=== PATIENT | female | born 1990 | race Two or more races ===

== ENCOUNTER 2018-06-20 20:07 | Emergency (ER) | payer MEDICAID ==
[~2018-06-20] VITALS: Ht 162.6 cm; Wt 72.7 kg
[2018-06-20 20:36] VITALS: BP 135/78
[2018-06-20] MEDS ORDERED: LORazepam 1 MG tablet PO ONE (20:45)
[2018-06-20 21:02] LABS: URINE HCG NEGATIVE (NEG)
[2018-06-20 21:03] LABS: BASOPHILS % (AUTO) 0.3 % (0-1); EOSINOPHILS # (AUTO) 0.3 X10'3 (0-0.9); EOSINOPHILS % (AUTO) 2.4 % (0-6); HEMATOCRIT 43.6 % (35.0-45.0); LYMPHOCYTES # (AUTO) 2.2 X10'3 (1.1-4.8); LYMPHOCYTES % (AUTO) 18.4 % (21-51); MEAN CORPUSCULAR HEMOGLOBIN 30.3 PG (27.0-31.0); MEAN CORPUSCULAR HGB CONC 34.5 % (33.0-36.5); MEAN CORPUSCULAR VOLUME 87.9 FL (78-98); MEAN PLATELET VOLUME 8.6 FL (7.4-10.4); MONOCYTES # (AUTO) 0.6 X10'3 (0-0.9); MONOCYTES % (AUTO) 5.1 % (2-12); NEUTROPHILS # (AUTO) 8.7 X10'3 (1.8-7.7); NEUTROPHILS % (AUTO) 73.8 % (42-75); PLATELET COUNT 313 X10'3 (140-440); RED BLOOD COUNT 4.96 X10'6 (4.20-5.60); RED CELL DISTRIBUTION WIDTH 13.5 % (11.5-14.5); WHITE BLOOD COUNT 11.8 X10'3 (4.5-11.0)
[2018-06-20 21:10] LABS: CLARITY,URINE SLIGHTLY CLOUDY (Clear); COLOR,URINE YELLOW (Yellow); GLUCOSE, URINE NEGATIVE (Neg); KETONES,URINE NEGATIVE (Neg); LEUKOCYTE ESTERASE ,URINE LARGE (Neg); NITRITES, URINE NEGATIVE (Neg); OCCULT BLOOD,URINE LARGE (Neg); PROTEIN,URINE NEGATIVE (Neg); UROBILINOGEN,URINE 0.2 E.U/dL (0.2-1.0)
[2018-06-20 21:11] LABS: UA COLLECTION TYPE CLN CATCH MIDSTREAM
[2018-06-20 21:13] LABS: PROTHROMBIN TIME 10.3 SECONDS (9.0-12.0)
[2018-06-20 21:17] LABS: ALANINE AMINOTRANSFERASE 20 U/L (12-78); ALBUMIN 3.9 G/DL (3.4-5.0); ALBUMIN/GLOBULIN RATIO 0.9 (1.1-1.5); ALKALINE PHOSPHATASE 46 IU/L (46-116); ANION GAP 10 (8-16); ASPARTATE AMINO TRANSFERASE 10 U/L (10-37); BILIRUBIN,TOTAL 0.4 MG/DL (0.1-1.0); BLOOD UREA NITROGEN 15 MG/DL (7-18); BUN/CREATININE RATIO 15.8 (6.6-38.0); CALCIUM 9.1 MG/DL (8.5-10.1); CHLORIDE 103 MMOL/L (99-107); CREATININE 0.95 MG/DL (0.40-0.90); GLUCOSE 90 MG/DL (70-104); LIPASE 151 U/L (73-393); POTASSIUM 4.1 MMOL/L (3.5-5.1); SODIUM 137 MMOL/L (135-145); TOTAL CARBON DIOXIDE 24.1 MMOL/L (24-32); TOTAL PROTEIN 8.1 G/DL (6.4-8.2); eGFR 70 ML/MIN
[2018-06-20 21:21] LABS: BACTERIA,URINE 1+ /HPF (Neg); MUCUS STRANDS MODERATE /LPF (Neg); SQUAMOUS EPITHELIAL CELL,UR MANY /LPF (FEW)
[2018-06-20] MEDS ORDERED: BACDS PO (21:49)
== END 2018-06-20 22:06 | disposition home or self-care (01) ==
LOC: ER 20:08
DX: N39.0 Urinary tract infection, site not specified (principal); F41.0 Panic disorder [episodic paroxysmal anxiety]; F17.200 Nicotine dependence, unspecified, uncomplicated
CPT/HCPCS: 36415; 80053; 81001; 81025; 83690; 85025; 85610; 93005; 99285

== ENCOUNTER 2018-09-03 01:51 | Emergency (ER) | payer MEDICAID ==
[~2018-09-03] VITALS: Ht 162.6 cm; Wt 67.0 kg
[2018-09-03] MEDS ORDERED: TETanus/Pertussis (Acell)/Diphther VAC/PF (Tdap-Adult) 0.5ml syringe IMVAC ONE (02:15)
[2018-09-03] MEDS ORDERED: LORazepam 1 MG tablet PO ONE (02:15)
[2018-09-03 02:32] VITALS: BP 121/91
== END 2018-09-03 02:34 | disposition home or self-care (01) ==
LOC: ER 01:51
DX: S61.210A Laceration without foreign body of right index finger without damage to nail, initial encounter (principal); F10.129 Alcohol abuse with intoxication, unspecified; F14.90 Cocaine use, unspecified, uncomplicated; Z88.0 Allergy status to penicillin; W26.0XXA Contact with knife, initial encounter; Y93.89 Activity, other specified; Y92.89 Other specified places as the place of occurrence of the external cause; Y99.9 Unspecified external cause status
CPT/HCPCS: 29130; 90471; 90715; 99283

== ENCOUNTER 2019-07-12 00:10 | Emergency (ER) | payer MEDICAID ==
[~2019-07-12] VITALS: Ht 162.6 cm; Wt 68.7 kg
[2019-07-12 00:15] VITALS: BP 111/66
[2019-07-12] MEDS ORDERED: ondansetron/PF 4mg/2ml inj IV ONE (00:20)
[2019-07-12] MEDS ORDERED: normal saline 1000ML IV soln IVB ONE (00:20)
--- NOTE | 2019-07-12 00:29 | NUR ---
Pt refusing IV placement and IV fluids at this time. Labs drawn and sent
[2019-07-12 00:32] LABS: BASOPHILS # (AUTO) 0.1 X10'3 (0-0.2); BASOPHILS % (AUTO) 0.5 % (0-1); EOSINOPHILS # (AUTO) 0.2 X10'3 (0-0.9); EOSINOPHILS % (AUTO) 1.7 % (0-6); HEMATOCRIT 31.8 % (35.0-45.0); HEMOGLOBIN 11.2 g/dl (12.0-16.0); LYMPHOCYTES # (AUTO) 2.5 X10'3 (1.1-4.8); LYMPHOCYTES % (AUTO) 17.4 % (21-51); MEAN CORPUSCULAR HEMOGLOBIN 32.2 PG (27.0-31.0); MEAN CORPUSCULAR HGB CONC 35.3 g/dL (33.0-36.5); MEAN CORPUSCULAR VOLUME 91.2 FL (78-98); MEAN PLATELET VOLUME 8.1 FL (7.4-10.4); MONOCYTES # (AUTO) 0.7 X10'3 (0-0.9); NEUTROPHILS # (AUTO) 10.9 X10'3 (1.8-7.7); NEUTROPHILS % (AUTO) 75.4 % (42-75); PLATELET COUNT 284 X10'3 (140-440); RED BLOOD COUNT 3.48 X10'6 (4.20-5.60); WHITE BLOOD COUNT 14.5 X10'3 (4.5-11.0)
[2019-07-12 00:48] LABS: ALANINE AMINOTRANSFERASE 30 U/L (12-78); ALBUMIN 2.4 G/DL (3.4-5.0); ALBUMIN/GLOBULIN RATIO 0.6 (1.1-1.5); ALKALINE PHOSPHATASE 61 IU/L (46-116); ANION GAP 9 (8-16); ASPARTATE AMINO TRANSFERASE 19 U/L (10-37); BILIRUBIN,TOTAL 0.1 MG/DL (0.1-1.0); BLOOD UREA NITROGEN 9 MG/DL (7-18); BUN/CREATININE RATIO 14.1 (6.6-38.0); CALCIUM 8.2 MG/DL (8.5-10.1); CHLORIDE 105 MMOL/L (99-107); CREATININE 0.64 MG/DL (0.40-0.90); GLUCOSE 109 MG/DL (70-104); POTASSIUM 3.9 MMOL/L (3.5-5.1); SODIUM 139 MMOL/L (135-145); TOTAL CARBON DIOXIDE 24.7 MMOL/L (24-32); TOTAL PROTEIN 6.3 G/DL (6.4-8.2); eGFR > 90 ML/MIN
[2019-07-12 00:58] LABS: LIPASE 252 U/L (73-393)
[2019-07-12 01:02] LABS: CLARITY,URINE CLEAR (Clear); COLOR,URINE YELLOW (Yellow); GLUCOSE, URINE NEGATIVE (Neg); KETONES,URINE NEGATIVE (Neg); LEUKOCYTE ESTERASE ,URINE NEGATIVE (Neg); NITRITES, URINE NEGATIVE (Neg); OCCULT BLOOD,URINE NEGATIVE (Neg); PROTEIN,URINE NEGATIVE (Neg); UA COLLECTION TYPE NON-SPECIFIED; URINE HCG POSITIVE (NEG)
[2019-07-12] MEDS ORDERED: ONDA4TAB6 PO (01:45)
== END 2019-07-12 01:55 | disposition home or self-care (01) ==
LOC: ER 00:11
DX: O9A.212 Injury, poisoning and certain other consequences of external causes complicating pregnancy, second trimester (principal); A02.9 Salmonella infection, unspecified; O21.9 Vomiting of pregnancy, unspecified; F41.9 Anxiety disorder, unspecified; F31.9 Bipolar disorder, unspecified; F14.90 Cocaine use, unspecified, uncomplicated; Z79.899 Other long term (current) drug therapy; Y92.89 Other specified places as the place of occurrence of the external cause
CPT/HCPCS: 36415; 80053; 81003; 81025; 83690; 85025; 99283

== ENCOUNTER 2020-01-08 09:32 | Emergency (ER) | payer MEDICAID ==
[~2020-01-08] VITALS: Ht 167.6 cm; Wt 60.0 kg
[~2020-01-08 09:32] MED LIST: ONDA4TAB6 PO
[2020-01-08 09:37] VITALS: BP 123/71
--- NOTE | 2020-01-08 09:47 | NUR ---
Patient seen and assessed by Provider.
== END 2020-01-08 09:48 | disposition home or self-care (01) ==
LOC: ER 09:32
DX: F10.10 Alcohol abuse, uncomplicated (principal); R53.83 Other fatigue; F15.90 Other stimulant use, unspecified, uncomplicated; F41.9 Anxiety disorder, unspecified; F31.9 Bipolar disorder, unspecified; F14.90 Cocaine use, unspecified, uncomplicated; Z79.899 Other long term (current) drug therapy
CPT/HCPCS: 99281

== ENCOUNTER 2022-10-10 10:31 | Emergency (ER) | payer MEDICAID ==
[~2022-10-10] VITALS: Ht 160 cm; Wt 59.1 kg
[2022-10-10 10:42] VITALS: BP 115/70
--- NOTE | 2022-10-10 10:56 | NUR ---
TRIAGE NURSE ATTEMPTED TO COLLECT COVID AND FLU SWABS. PATIENT UNCOOPERATIVE WITH TEST AND REFUSED FOR NURSE TO OBTAIN SPECIMENS.
[2022-10-10 13:09] LABS: URINE HCG NEGATIVE (NEG)
[2022-10-10 13:11] LABS: CLARITY,URINE CLOUDY (Clear); COLOR,URINE YELLOW (Yellow); GLUCOSE, URINE NEGATIVE (Neg); KETONES,URINE TRACE mg/dl (Neg); LEUKOCYTE ESTERASE ,URINE NEGATIVE (Neg); NITRITES, URINE NEGATIVE (Neg); OCCULT BLOOD,URINE LARGE (Neg); PROTEIN,URINE TRACE mg/dl (Neg); UROBILINOGEN,URINE 0.2 E.U/dL (0.2-1.0)
[2022-10-10 13:15] LABS: UA COLLECTION TYPE CLN CATCH MIDSTREAM
[2022-10-10 13:17] LABS: BACTERIA,URINE NONE SEEN /HPF (Neg); CAL OXALATE CRYSTALS 4+ /HPF (NEGATIVE); SQUAMOUS EPITHELIAL CELL,UR FEW /LPF (FEW); WBC,URINE 0-4 /HPF (0-4)
[2022-10-10] MEDS ORDERED: ONDA4TAB12 PO (13:29)
[2022-10-10] MEDS ORDERED: PANT-47 PO (13:29)
== END 2022-10-10 13:41 | disposition home or self-care (01) ==
LOC: ER 10:32
DX: A08.4 Viral intestinal infection, unspecified (principal); Z20.822 Contact with and (suspected) exposure to COVID-19; R11.2 Nausea with vomiting, unspecified; R19.7 Diarrhea, unspecified; F41.9 Anxiety disorder, unspecified; F31.9 Bipolar disorder, unspecified; F14.90 Cocaine use, unspecified, uncomplicated; Z88.0 Allergy status to penicillin; Z79.899 Other long term (current) drug therapy
CPT/HCPCS: 81001; 81025; 87502; 87503; 87635; 99283; C9803

== ENCOUNTER 2024-04-05 15:11 | Emergency (ER) | payer SELFPAY ==
[~2024-04-05] VITALS: Ht 162.6 cm; Wt 59.1 kg
[~2024-04-05 15:11] MED LIST changes: +ONDA4TAB12 PO; +PANT-47 PO
[2024-04-05 19:03] VITALS: BP 131/78; PULSE 88; RESP 14; TEMP 98.1; O2SAT 99
== END 2024-04-05 19:04 | disposition home or self-care (01) ==
LOC: ER 15:11
DX: R93.5 Abnormal findings on diagnostic imaging of other abdominal regions, including retroperitoneum (principal); Z88.0 Allergy status to penicillin; Z79.899 Other long term (current) drug therapy
CPT/HCPCS: 36415; 72192; 74018; 84702; 99284